=== PATIENT | male | born 1950 | race Caucasian/White ===

== ENCOUNTER 2021-09-01 05:51 | Day surgery (SDC) | payer MEDICARE ==
[2021-08-31 16:07] LABS: BASOPHILS # (AUTO) 0.1 X10'3 (0-0.2); BASOPHILS % (AUTO) 0.8 % (0-1); EOSINOPHILS # (AUTO) 0.1 X10'3 (0-0.9); EOSINOPHILS % (AUTO) 0.8 % (0-6); HEMATOCRIT 43.3 % (42.0-52.0); HEMOGLOBIN 15.1 g/dl (14.0-17.9); LYMPHOCYTES # (AUTO) 2.7 X10'3 (1.1-4.8); LYMPHOCYTES % (AUTO) 31.9 % (21-51); MEAN CORPUSCULAR HEMOGLOBIN 32.6 PG (27.0-31.0); MEAN CORPUSCULAR HGB CONC 34.9 g/dL (33.0-36.5); MEAN CORPUSCULAR VOLUME 93.4 FL (78-98); MEAN PLATELET VOLUME 7.7 FL (7.4-10.4); MONOCYTES # (AUTO) 0.5 X10'3 (0-0.9); MONOCYTES % (AUTO) 5.9 % (2-12); NEUTROPHILS # (AUTO) 5.2 X10'3 (1.8-7.7); NEUTROPHILS % (AUTO) 60.6 % (42-75); PLATELET COUNT 310 X10'3 (140-440); RED BLOOD COUNT 4.63 X10'6 (4.70-6.10); RED CELL DISTRIBUTION WIDTH 14.2 % (11.5-14.5); WHITE BLOOD COUNT 8.5 X10'3 (4.5-11.0)
[2021-08-31 16:22] LABS: ALBUMIN 3.9 G/DL (3.4-5.0); ANION GAP 11 (8-16); BLOOD UREA NITROGEN 18 MG/DL (7-18); BUN/CREATININE RATIO 16.2 (5.4-32.0); CALCIUM 8.7 MG/DL (8.5-10.1); CHLORIDE 105 MMOL/L (99-107); CREATININE 1.11 MG/DL (0.60-1.10); GLUCOSE 101 MG/DL (70-104); POTASSIUM 3.8 MMOL/L (3.5-5.1); SODIUM 140 MMOL/L (135-145); TOTAL CARBON DIOXIDE 23.9 MMOL/L (24-32); eGFR 66 ML/MIN
[2021-08-31 16:24] LABS: APTT 25 SECONDS (22-32)
[2021-09-01] VITALS (13 sets, daily range): BP systolic 122–159; BP diastolic 77–95
[~2021-09-01] VITALS: Ht 172.7 cm; Wt 68.7 kg
[2021-09-01] MEDS ORDERED: diphenhydrAMINE 25mg capsule PO PRN (06:05)
[2021-09-01] MEDS ORDERED: normal saline 1,000 ML IV SCH (06:05)
[2021-09-01] MEDS ORDERED: LORazepam 0.5 MG tablet PO PRN (06:05)
[2021-09-01] MEDS ORDERED: LIDOcaine/PRILOcaine 5gm cream TP ONE (06:10)
[2021-09-01] MEDS ORDERED: LOSA50TA64 PO (06:16)
[2021-09-01] MEDS ORDERED: ATOR40TA72 PO (06:16)
[2021-09-01] MEDS ORDERED: FLO0.4C PO (06:16)
[2021-09-01] MEDS ORDERED: ASPI81TA52 PO (06:16)
[2021-09-01] MEDS ORDERED: MULT-1085 PO (06:17)
[2021-09-01] MEDS ORDERED: iohexol 350 MG/ML 50ML vial IV ONE (07:23)
[2021-09-01] MEDS ORDERED: verapamil 2.5 mg/ml inj IV ONE (07:23)
[2021-09-01] MEDS ORDERED: midazolam 1 mg/ML 2ml injection ONE (07:23)
[2021-09-01] MEDS ORDERED: heparin 1,000unit/ml 10ml vial 10 ML ONE (07:23)
[2021-09-01] MEDS ORDERED: nitroGLYCERIN-Tridil 50MG/D5W 250 ML IV ONE (07:23)
[2021-09-01] MEDS ORDERED: fentaNYL/PF 50MCG/1 ML 2ML syringe ONE (07:23)
[2021-09-01] MEDS ORDERED: LIDOcaine 1% (10mg/ml)w/preservative injection 20ml MDV ONE (07:23)
[2021-09-01] MEDS ORDERED: iohexol 350MG/ML 100ml bottle IV ONE (07:23)
[2021-09-01 09:04] LABS: ISTAT HGB ART 14.6 g/dl (14.0-18.0); ISTAT Hct ART 43 %PCV (42-52); ISTAT O2 SATURATION ARTERIAL 98 % (95-98); ISTAT SOURCE ART
[2021-09-01 11:22] LABS: ISTAT Hct MIX 42 %PCV (42-52); ISTAT O2 SATURATION MIX VENOUS 70 % (60-80); ISTAT SOURCE VEN
--- NOTE | 2021-09-01 15:05 | NUR ---
PT SPOKE TO DIAN THIS MORNING AND CONFIRMED HER TO GIVE HIM A RIDE HOME. PHONED DIAN POST CARDIAC CATH AND INFORMED HER OF APPROXIMATE DISCHARGE TIME, AGAIN DIAN CONFIRMED TO GIVE PATIENT RIDE HOME. AT APPROXIMATELY 1410 DIAN HAD NOT ARRIVED, PT PHONED DIAN, DIAN NOTIFIED PT SHE WOULD BE HERE IN APPROXIMATELY 30 MINS. AT 1500 DIAN STILL HAS NOT ARRIVED. Jeff PRADO RN ATTEMPTED TO PHONE DIAN WITH NO ANSWER. PT NOW WOULD LIKE TO TAKE [facility] TO [facility] THE NIGHT AND RETURN IN THE MORNING TO [facility]. [facility] [employer] CALLED WILL BE HERE IN 30 MINS.
== END 2021-09-01 15:42 | disposition home or self-care (01) ==
LOC: SSTAY O 05:51
PROVIDERS: ATTEND Internal Medicine Cardiovascular Disease
DX: R53.83 Other fatigue (principal); I35.0 Nonrheumatic aortic (valve) stenosis; I25.10 Atherosclerotic heart disease of native coronary artery without angina pectoris; I10 Essential (primary) hypertension; F17.210 Nicotine dependence, cigarettes, uncomplicated; Z86.73 Personal history of transient ischemic attack (TIA), and cerebral infarction without residual deficits; Z79.01 Long term (current) use of anticoagulants; Z72.89 Other problems related to lifestyle
CPT/HCPCS: 36415; 76937; 80048; 82803; 85014; 85025; 85610; 85730; 93005; 93460; 99152; 99153; C1751; C1769; C1894; J1644; J2250; J3010; J3490; J7030; Q0163; Q9967; A4620; A5120; A6258

== ENCOUNTER 2021-09-08 09:52 | Outpatient (CLI) | payer MEDICARE ==
[~2021-09-08 09:52] MED LIST: ASPI81TA52 PO; ATOR40TA72 PO; FLO0.4C PO; LOSA50TA64 PO; MULT-1085 PO
[2021-09-08 12:00] LABS: ABG BASE EXCESS -0.6 mmol/L (-2.0-2.0); ABG HCO3 23.3 mmol/L (22.0-26.0); ABG OXYGEN SATURATION 96.4 % (94-97); ABG PCO2 (T) 36.6 mmHg (35.0-48.0); ABG PO2 (T) 77.4 mmHg (75.0-100.0); ALLEN'S TEST POSITIVE; FCOHb 4.3 % (0.0-3.9); FO2Hb 92.3 % (94-97); TOTAL HEMOGLOBIN 16.2 G/dl (14.0-18.0)
== END 2021-09-08 23:59 | disposition home or self-care (01) ==
LOC: RAD 09:52
PROVIDERS: ATTEND Internal Medicine Cardiovascular Disease
DX: K57.30 Diverticulosis of large intestine without perforation or abscess without bleeding (principal); N43.3 Hydrocele, unspecified; I70.203 Unspecified atherosclerosis of native arteries of extremities, bilateral legs; M47.816 Spondylosis without myelopathy or radiculopathy, lumbar region; N40.0 Benign prostatic hyperplasia without lower urinary tract symptoms; I70.0 Atherosclerosis of aorta; I70.1 Atherosclerosis of renal artery; I70.8 Atherosclerosis of other arteries; R91.1 Solitary pulmonary nodule; M48.54XA Collapsed vertebra, not elsewhere classified, thoracic region, initial encounter for fracture; I25.10 Atherosclerotic heart disease of native coronary artery without angina pectoris; M47.814 Spondylosis without myelopathy or radiculopathy, thoracic region; J43.2 Centrilobular emphysema; I65.23 Occlusion and stenosis of bilateral carotid arteries; R94.2 Abnormal results of pulmonary function studies; I35.0 Nonrheumatic aortic (valve) stenosis; R06.02 Shortness of breath; Z20.822 Contact with and (suspected) exposure to COVID-19
CPT/HCPCS: 36600; 71046; 71275; 74174; 82803; 85018; 87635; 93880; 94010; 94727; 94729; C9803; Q9967

== ENCOUNTER → 2021-09-09 | Outpatient (CLI) | payer MEDICARE ==
[~2021-09-09] VITALS: Ht 172.7 cm; Wt 69.2 kg
[~2021-09-09] MED LIST changes: +IODIXANOL 320 MG/ML INFUS..BTL 100ML IV ONE; +IODIXANOL 320 MG/ML INFUS..BTL 50ML IV ONE
[2021-09-09 15:24] VITALS: BP 192/107
--- NOTE | 2021-09-09 15:25 | NUR ---
BP re checked 183/108 Addendum: 09/09/21 at 1526 by Bonnie Zambrano RN Amended: Links added.
[2021-09-09 15:31] VITALS: BP 183/108
--- NOTE | 2021-09-09 15:37 | NUR ---
Patient was in the [facility] today to consult with Dr. Booth and Dr. Fernández. KCQ12 completed. Walk test completed. Vital signs measured. Patient education reviewed and questions answered.
== END | disposition home or self-care (01) ==
LOC: TAVR 11:31
PROVIDERS: ATTEND Internal Medicine Cardiovascular Disease
DX: I35.0 Nonrheumatic aortic (valve) stenosis (principal); R06.02 Shortness of breath; I65.29 Occlusion and stenosis of unspecified carotid artery
CPT/HCPCS: Q9967 ×2

== ENCOUNTER 2021-11-01 08:07 | Day surgery (SDC) | payer MEDICARE ==
[~2021-11-01] VITALS: Ht 172.7 cm; Wt 68.1 kg
--- NOTE | 2021-11-01 07:00 | NUR ---
IV fluids infusing as ordered. IV started by Bonnie GRIGSBY in right hand Addendum: 11/01/21 at 1242 by Joanna Rodríguez RN Correction. Incorrect pt.
[~2021-11-01 08:07] MED LIST changes: -IODIXANOL 320 MG/ML INFUS..BTL 100ML IV ONE; -IODIXANOL 320 MG/ML INFUS..BTL 50ML IV ONE
[2021-11-01] MEDS ORDERED: normal saline 1000ml 1,000 ML IV PRN (08:35)
[2021-11-01 08:46] VITALS: BP 155/94
[2021-11-01 09:35] LABS: BASOPHILS # (AUTO) 0.1 X10'3 (0-0.2); EOSINOPHILS # (AUTO) 0.1 X10'3 (0-0.9); EOSINOPHILS % (AUTO) 1.3 % (0-6); HEMATOCRIT 43.9 % (42.0-52.0); HEMOGLOBIN 14.9 g/dl (14.0-17.9); LYMPHOCYTES % (AUTO) 33.7 % (21-51); MEAN CORPUSCULAR HEMOGLOBIN 31.8 PG (27.0-31.0); MEAN CORPUSCULAR VOLUME 93.6 FL (78-98); MEAN PLATELET VOLUME 7.5 FL (7.4-10.4); MONOCYTES # (AUTO) 0.4 X10'3 (0-0.9); MONOCYTES % (AUTO) 7.1 % (2-12); NEUTROPHILS # (AUTO) 3.4 X10'3 (1.8-7.7); NEUTROPHILS % (AUTO) 56.9 % (42-75); PLATELET COUNT 263 X10'3 (140-440); RED BLOOD COUNT 4.69 X10'6 (4.70-6.10); RED CELL DISTRIBUTION WIDTH 14.4 % (11.5-14.5); WHITE BLOOD COUNT 5.9 X10'3 (4.5-11.0)
[2021-11-02] MEDS ORDERED: FLU VACC QS2021-22(6MOS UP)/PF 60 MCG/0.5 ML SYRINGE IM ONE (10:55)
== END 2021-11-01 11:30 | disposition home or self-care (01) ==
LOC: SSTAY O 08:07
PROVIDERS: ATTEND Radiology Diagnostic Radiology
DX: R91.1 Solitary pulmonary nodule (principal); Z53.8 Procedure and treatment not carried out for other reasons; N40.0 Benign prostatic hyperplasia without lower urinary tract symptoms; E78.5 Hyperlipidemia, unspecified; I10 Essential (primary) hypertension; I35.0 Nonrheumatic aortic (valve) stenosis; I25.10 Atherosclerotic heart disease of native coronary artery without angina pectoris; Z72.89 Other problems related to lifestyle; F17.210 Nicotine dependence, cigarettes, uncomplicated; Z79.899 Other long term (current) drug therapy; Z79.82 Long term (current) use of aspirin
CPT/HCPCS: 36415; 85025